=== PATIENT | male | born 1945 | race Caucasian/White ===

== ENCOUNTER 2018-10-22 19:13 | Inpatient (IN) | payer MEDICARE, OTHER ==
[~2018-10-22] VITALS: Ht 162.6 cm; Wt 57.6 kg
[2018-10-22] MEDS ORDERED: DOCUSATE SODIUM 283 MG/5 ML MINI-ENEMA PR PRN (21:45)
[2018-10-22] MEDS ORDERED: INSULIN LISPRO 100 UNITS/ML SQ PRN (22:00)
[2018-10-22] MEDS ORDERED: DEXTROSE 50%-WATER 25 GM/50 ML SYRINGE IVP PRN (22:00)
[2018-10-22 22:35] VITALS: BP 151/75
[2018-10-23 00:51] VITALS: BP 140/67
[2018-10-23] MEDS: ACETAMINOPHEN 325 MG TABLET PO PRN (00:51)
[2018-10-23] MEDS: LORazepam 1 MG TABLET PO PRN (03:12)
[2018-10-23] MEDS: LEVOTHYROXINE SODIUM 25 MCG TABLET PO SCH (06:02)
[2018-10-23 06:35] LABS: GLUCOMETER DEV NAME(LOC) 2WR.1; GLUCOSE,POINT OF CARE 92 MG/DL (70-110)
[2018-10-23 06:40] LABS: BASOPHILS % (AUTO) 0.6 % (0.0-2.0); EOSINOPHILS % (AUTO) 2.7 % (1.0-6.0); HEMATOCRIT 28.5 % (41-53); LYMPHOCYTES # (AUTO) 1.6 K/uL (1.0-4.8); LYMPHOCYTES % (AUTO) 25.8 % (22.0-44.0); MEAN CORPUSCULAR HEMOGLOBIN 31.2 pg (26.0-34.0); MEAN CORPUSCULAR VOLUME 89 fL (80-100); MONOCYTES # (AUTO) 0.6 K/uL (0.1-1.0); MONOCYTES % (AUTO) 10.3 % (2.0-9.0); NEUTROPHILS # (AUTO) 3.8 K/uL (1.8-7.7); NEUTROPHILS % (AUTO) 60.6 % (40.0-70.0); PLATELET COUNT (AUTO) 210 K/uL (150-450); RED CELL DISTRIBUTION WIDTH 15.3 % (11.5-14.5)
[2018-10-23 07:00] VITALS: BP 118/58
[2018-10-23 07:14] LABS: ALBUMIN 1.2 g/dL (3.4-5.0); BILIRUBIN,TOTAL 0.2 mg/dL (0.1-1.0); CALCIUM, TOTAL 7.6 mg/dL (8.8-10.5); CREATININE 1.5 mg/dL (0.60-1.30); POTASSIUM 3.7 mmol/L (3.5-5.1); TOTAL PROTEIN, SERUM 5.7 g/dL (6.4-8.2)
[2018-10-23] MEDS ORDERED: PNEUMOCOCCAL VACCINE POLYVALENT 0.5 ML VIAL [PPSV23] IM ONE (08:00)
[2018-10-23] MEDS: LOSARTAN POTASSIUM 50 MG TABLET PO SCH ×2 (08:53→20:31)
[2018-10-23] MEDS: PANTOPRAZOLE SODIUM 40 MG DR TABLET PO SCH ×2 (08:53→20:31)
[2018-10-23] MEDS: APIXABAN 5 MG TABLET PO SCH ×2 (08:53→20:31)
[2018-10-23] MEDS: SPIRONOLACTONE 25 MG TABLET PO SCH (08:53)
[2018-10-23] MEDS: CHOLECALCIFEROL (VIT D3) 1,000 UNITS TABLET PO SCH (08:53)
[2018-10-23] MEDS: ASPIRIN 81 MG CHEWABLE TABLET PO SCH (08:53)
[2018-10-23] MEDS: CARVEDILOL 3.125 MG TABLET PO SCH ×2 (08:53→17:00)
[2018-10-23] MEDS: ETHACRYNIC ACID 25 MG TABLET PO SCH (08:54)
[2018-10-23] MEDS ORDERED: DOCUSATE SODIUM 100 MG CAPSULE PO SCH (09:00)
[2018-10-23] MEDS: DOCUSATE SODIUM 250 MG CAPSULE PO SCH ×2 (09:00→20:31)
[2018-10-23] MEDS ORDERED: HYDROCODONE/ACETAMINOPHEN 5-325 MG TABLET PO PRN (12:30)
[2018-10-23] MEDS ORDERED: NITROGLYCERIN 2% (1 GM=INCH) PACKET TP PRN (12:30)
[2018-10-23 12:35] LABS: GLUCOMETER DEV NAME(LOC) 2WR.2; GLUCOSE,POINT OF CARE 102 MG/DL (70-110)
[2018-10-23] MEDS: POLYETHYLENE GLYCOL 3350 17 GM PACKET PO SCH (13:56)
[2018-10-23 16:11] VITALS: BP 130/56
[2018-10-23] MEDS ORDERED: ISOSORBIDE MONONITRATE 20 MG TABLET PO SCH (17:00)
[2018-10-23 17:54] LABS: GLUCOMETER DEV NAME(LOC) 2WR.1; GLUCOSE,POINT OF CARE 96 MG/DL (70-110)
[2018-10-23 20:15] VITALS: BP 132/68
[2018-10-23] MEDS: SENNA 187 MG TABLET PO SCH (20:31)
[2018-10-23] MEDS: ROSUVASTATIN CALCIUM 20 MG TABLET PO SCH (20:32)
[2018-10-23] MEDS: MELATONIN 3 MG TABLET PO PRN (20:34)
[2018-10-23] MEDS ORDERED: SENNA 187 MG TABLET PO SCH (21:00)
[2018-10-23 23:09] LABS: GLUCOMETER DEV NAME(LOC) 2WR.2; GLUCOSE,POINT OF CARE 101 MG/DL (70-110)
[2018-10-23 23:56] VITALS: BP 111/57
[2018-10-24] MEDS: LORazepam 1 MG TABLET PO PRN (02:13)
[2018-10-24] MEDS: LEVOTHYROXINE SODIUM 25 MCG TABLET PO SCH (05:55)
[2018-10-24 06:04] LABS: GLUCOMETER DEV NAME(LOC) 2WR.2; GLUCOSE,POINT OF CARE 93 MG/DL (70-110)
[2018-10-24 08:00] VITALS: BP 125/57
[2018-10-24] MEDS: POLYETHYLENE GLYCOL 3350 17 GM PACKET PO SCH (08:06)
[2018-10-24] MEDS: ETHACRYNIC ACID 25 MG TABLET PO SCH (08:06)
[2018-10-24] MEDS: APIXABAN 5 MG TABLET PO SCH ×2 (08:06→20:41)
[2018-10-24] MEDS: PANTOPRAZOLE SODIUM 40 MG DR TABLET PO SCH ×2 (08:07→20:42)
[2018-10-24] MEDS: SPIRONOLACTONE 25 MG TABLET PO SCH (08:07)
[2018-10-24] MEDS: CARVEDILOL 3.125 MG TABLET PO SCH ×2 (08:07→15:57)
[2018-10-24] MEDS: CHOLECALCIFEROL (VIT D3) 1,000 UNITS TABLET PO SCH (08:07)
[2018-10-24] MEDS: DOCUSATE SODIUM 250 MG CAPSULE PO SCH ×2 (08:07→20:37)
[2018-10-24] MEDS: ASPIRIN 81 MG CHEWABLE TABLET PO SCH (08:07)
[2018-10-24] MEDS: LOSARTAN POTASSIUM 50 MG TABLET PO SCH ×2 (08:07→20:43)
[2018-10-24] MEDS: ISOSORBIDE MONONITRATE 30 MG ER TABLET PO SCH (08:24)
[2018-10-24] MEDS ORDERED: MAGNESIUM CITRATE 300 ML ORAL SOLUTION PO ONE (10:45)
[2018-10-24 12:28] LABS: GLUCOMETER DEV NAME(LOC) 2WR.1; GLUCOSE,POINT OF CARE 111 MG/DL (70-110)
[2018-10-24 16:00] VITALS: BP 98/54
[2018-10-24 17:49] LABS: GLUCOMETER DEV NAME(LOC) 2WR.2; GLUCOSE,POINT OF CARE 102 MG/DL (70-110)
[2018-10-24] MEDS: ACETAMINOPHEN 325 MG TABLET PO PRN (18:41)
[2018-10-24] MEDS: SENNA 187 MG TABLET PO SCH (20:37)
[2018-10-24 20:39] VITALS: BP 134/60
[2018-10-24] MEDS: ROSUVASTATIN CALCIUM 20 MG TABLET PO SCH (20:42)
[2018-10-24 21:04] LABS: GLUCOMETER DEV NAME(LOC) 2WR.1; GLUCOSE,POINT OF CARE 96 MG/DL (70-110)
[2018-10-25 00:36] VITALS: BP 109/52
[2018-10-25] MEDS: LORazepam 1 MG TABLET PO PRN (02:55)
[2018-10-25] MEDS: LEVOTHYROXINE SODIUM 25 MCG TABLET PO SCH (06:34)
[2018-10-25 06:39] LABS: GLUCOMETER DEV NAME(LOC) 2WR.1; GLUCOSE,POINT OF CARE 84 MG/DL (70-110)
[2018-10-25 07:24] VITALS: BP 126/70
[2018-10-25] MEDS: CARVEDILOL 3.125 MG TABLET PO SCH ×2 (07:30→17:00)
[2018-10-25] MEDS: ETHACRYNIC ACID 25 MG TABLET PO SCH ×2 (07:56→09:25)
[2018-10-25] MEDS: DOCUSATE SODIUM 250 MG CAPSULE PO SCH ×2 (07:57→20:58)
[2018-10-25] MEDS: LOSARTAN POTASSIUM 50 MG TABLET PO SCH ×2 (07:57→20:59)
[2018-10-25] MEDS: POLYETHYLENE GLYCOL 3350 17 GM PACKET PO SCH (07:58)
[2018-10-25] MEDS: PANTOPRAZOLE SODIUM 40 MG DR TABLET PO SCH ×2 (09:23→20:49)
[2018-10-25] MEDS: ISOSORBIDE MONONITRATE 30 MG ER TABLET PO SCH (09:23)
[2018-10-25] MEDS: SPIRONOLACTONE 25 MG TABLET PO SCH (09:23)
[2018-10-25] MEDS: APIXABAN 5 MG TABLET PO SCH ×2 (09:23→20:48)
[2018-10-25] MEDS: ASPIRIN 81 MG CHEWABLE TABLET PO SCH (09:23)
[2018-10-25] MEDS: CHOLECALCIFEROL (VIT D3) 1,000 UNITS TABLET PO SCH (09:24)
[2018-10-25] MEDS ORDERED: ROSU20 PO (14:51)
[2018-10-25] MEDS ORDERED: CARV3 PO (14:52)
[2018-10-25] MEDS ORDERED: ISOS30TA6 PO (14:53)
[2018-10-25] MEDS ORDERED: APIX5TAB PO (14:54)
[2018-10-25] MEDS ORDERED: PANT40TA25 PO (14:54)
[2018-10-25] MEDS ORDERED: LEVO25TA9 PO (14:55)
[2018-10-25] MEDS ORDERED: ETHA25TA4 PO (14:56)
[2018-10-25] MEDS ORDERED: ASPI-1182 PO (14:57)
[2018-10-25] MEDS ORDERED: SPIR25 PO (14:57)
[2018-10-25] MEDS ORDERED: VITAD1000 PO (14:59)
[2018-10-25] MEDS ORDERED: LOSA25TA2 PO (15:00)
[2018-10-25 17:05] VITALS: BP 112/58
[2018-10-25 17:53] LABS: GLUCOMETER DEV NAME(LOC) 2WR.2; GLUCOSE,POINT OF CARE 102 MG/DL (70-110)
[2018-10-25 20:46] VITALS: BP 104/50
[2018-10-25] MEDS: ROSUVASTATIN CALCIUM 20 MG TABLET PO SCH (20:51)
[2018-10-25] MEDS: SENNA 187 MG TABLET PO SCH (20:58)
[2018-10-25 23:50] VITALS: BP 112/55
[2018-10-25] MEDS: MELATONIN 3 MG TABLET PO PRN (23:51)
[2018-10-25] MEDS: ACETAMINOPHEN 325 MG TABLET PO PRN (23:51)
[2018-10-26] VITALS (8 sets, daily range): BP systolic 86–158; BP diastolic 38–78
[2018-10-26 05:34] LABS: GLUCOMETER DEV NAME(LOC) 2WR.2; GLUCOSE,POINT OF CARE 89 MG/DL (70-110)
[2018-10-26] MEDS: LEVOTHYROXINE SODIUM 25 MCG TABLET PO SCH (05:59)
[2018-10-26] MEDS: CARVEDILOL 3.125 MG TABLET PO SCH ×2 (07:30→16:19)
[2018-10-26] MEDS: LOSARTAN POTASSIUM 50 MG TABLET PO SCH ×2 (07:53→20:21)
[2018-10-26] MEDS: POLYETHYLENE GLYCOL 3350 17 GM PACKET PO SCH (07:55)
[2018-10-26] MEDS: DOCUSATE SODIUM 250 MG CAPSULE PO SCH ×2 (07:56→20:14)
[2018-10-26] MEDS: ISOSORBIDE MONONITRATE 30 MG ER TABLET PO SCH (07:57)
[2018-10-26] MEDS: PANTOPRAZOLE SODIUM 40 MG DR TABLET PO SCH ×2 (07:57→20:15)
[2018-10-26] MEDS: ASPIRIN 81 MG CHEWABLE TABLET PO SCH (07:57)
[2018-10-26] MEDS: CHOLECALCIFEROL (VIT D3) 1,000 UNITS TABLET PO SCH (07:57)
[2018-10-26] MEDS: ESCITALOPRAM OXALATE 10 MG TABLET PO SCH (07:57)
[2018-10-26] MEDS: APIXABAN 5 MG TABLET PO SCH ×2 (07:57→20:15)
[2018-10-26] MEDS: SPIRONOLACTONE 25 MG TABLET PO SCH (07:58)
[2018-10-26] MEDS: ETHACRYNIC ACID 25 MG TABLET PO SCH (07:58)
[2018-10-26] MEDS ORDERED: TEMAZEPAM 15 MG CAPSULE PO PRN ×3 (13:30→20:00)
[2018-10-26] MEDS: ROSUVASTATIN CALCIUM 20 MG TABLET PO SCH (20:17)
[2018-10-26] MEDS: METOPROLOL SUCCINATE 25 MG ER TABLET PO SCH (20:21)
[2018-10-26] MEDS: SENNA 187 MG TABLET PO SCH (20:21)
[2018-10-26] MEDS ORDERED: MELATONIN 5 MG TABLET PO SCH (21:00)
[2018-10-27 00:18] VITALS: BP 119/52
[2018-10-27 05:54] LABS: GLUCOMETER DEV NAME(LOC) 2WR.2; GLUCOSE,POINT OF CARE 84 MG/DL (70-110)
[2018-10-27] MEDS: LEVOTHYROXINE SODIUM 25 MCG TABLET PO SCH (06:35)
[2018-10-27 06:43] LABS: BASOPHILS % (AUTO) 0.3 % (0.0-2.0); EOSINOPHILS % (AUTO) 2.8 % (1.0-6.0); HEMATOCRIT 27.1 % (41-53); HEMOGLOBIN 9.5 g/dL (13.5-17.5); LYMPHOCYTES # (AUTO) 1.6 K/uL (1.0-4.8); LYMPHOCYTES % (AUTO) 20.6 % (22.0-44.0); MEAN CORPUSCULAR HEMOGLOBIN 30.7 pg (26.0-34.0); MEAN CORPUSCULAR HGB CONC 35.1 G/dL (31.0-37.0); MEAN CORPUSCULAR VOLUME 88 fL (80-100); MONOCYTES # (AUTO) 0.7 K/uL (0.1-1.0); MONOCYTES % (AUTO) 8.5 % (2.0-9.0); NEUTROPHILS # (AUTO) 5.2 K/uL (1.8-7.7); NEUTROPHILS % (AUTO) 67.8 % (40.0-70.0); PLATELET COUNT (AUTO) 238 K/uL (150-450); RED CELL DISTRIBUTION WIDTH 14.7 % (11.5-14.5)
[2018-10-27 07:20] VITALS: BP 130/57
[2018-10-27 07:38] LABS: ALBUMIN 1.5 g/dL (3.4-5.0); BILIRUBIN,TOTAL 0.2 mg/dL (0.1-1.0); CALCIUM, TOTAL 7.5 mg/dL (8.8-10.5); CREATININE 1.36 mg/dL (0.60-1.30); MAGNESIUM 2.3 mg/dL (1.80-2.40); POTASSIUM 3.7 mmol/L (3.5-5.1); TOTAL PROTEIN, SERUM 5.5 g/dL (6.4-8.2)
[2018-10-27] MEDS: ESCITALOPRAM OXALATE 10 MG TABLET PO SCH (07:54)
[2018-10-27] MEDS: ASPIRIN 81 MG CHEWABLE TABLET PO SCH (07:54)
[2018-10-27] MEDS: CHOLECALCIFEROL (VIT D3) 1,000 UNITS TABLET PO SCH (07:54)
[2018-10-27] MEDS: APIXABAN 5 MG TABLET PO SCH ×2 (07:54→20:16)
[2018-10-27] MEDS: DOCUSATE SODIUM 250 MG CAPSULE PO SCH ×2 (07:54→20:14)
[2018-10-27] MEDS: ETHACRYNIC ACID 25 MG TABLET PO SCH (07:55)
[2018-10-27] MEDS: ISOSORBIDE MONONITRATE 30 MG ER TABLET PO SCH (07:55)
[2018-10-27] MEDS: PANTOPRAZOLE SODIUM 40 MG DR TABLET PO SCH ×2 (07:55→20:15)
[2018-10-27] MEDS: LOSARTAN POTASSIUM 50 MG TABLET PO SCH ×2 (07:55→20:20)
[2018-10-27] MEDS: POLYETHYLENE GLYCOL 3350 17 GM PACKET PO SCH (07:56)
[2018-10-27 16:00] VITALS: BP 106/58
[2018-10-27 18:39] LABS: GLUCOMETER DEV NAME(LOC) 2WR.1; GLUCOSE,POINT OF CARE 113 MG/DL (70-110)
[2018-10-27] MEDS ORDERED: ONDANSETRON HCL 4 MG TABLET PO PRN (18:45)
[2018-10-27 19:51] VITALS: BP 139/54
[2018-10-27] MEDS: SENNA 187 MG TABLET PO SCH (20:14)
[2018-10-27] MEDS: ROSUVASTATIN CALCIUM 20 MG TABLET PO SCH (20:15)
[2018-10-27] MEDS: METOPROLOL SUCCINATE 25 MG ER TABLET PO SCH (20:20)
[2018-10-27] MEDS: TEMAZEPAM 15 MG CAPSULE PO PRN (21:56)
[2018-10-28] MEDS: LEVOTHYROXINE SODIUM 25 MCG TABLET PO SCH (05:42)
[2018-10-28 05:50] VITALS: BP 138/64
[2018-10-28 06:13] LABS: GLUCOMETER DEV NAME(LOC) 2WR.2; GLUCOSE,POINT OF CARE 80 MG/DL (70-110)
[2018-10-28 06:48] LABS: BASOPHILS % (AUTO) 0.7 % (0.0-2.0); EOSINOPHILS % (AUTO) 2.7 % (1.0-6.0); HEMOGLOBIN 9.5 g/dL (13.5-17.5); LYMPHOCYTES # (AUTO) 1.5 K/uL (1.0-4.8); LYMPHOCYTES % (AUTO) 25.8 % (22.0-44.0); MEAN CORPUSCULAR HEMOGLOBIN 31.2 pg (26.0-34.0); MEAN CORPUSCULAR HGB CONC 35.3 G/dL (31.0-37.0); MEAN CORPUSCULAR VOLUME 88 fL (80-100); MONOCYTES # (AUTO) 0.5 K/uL (0.1-1.0); MONOCYTES % (AUTO) 8.6 % (2.0-9.0); NEUTROPHILS # (AUTO) 3.6 K/uL (1.8-7.7); NEUTROPHILS % (AUTO) 62.2 % (40.0-70.0); PLATELET COUNT (AUTO) 236 K/uL (150-450); RED BLOOD CELL COUNT(AUTO) 3.06 MIL/uL (4.50-5.90); RED CELL DISTRIBUTION WIDTH 14.9 % (11.5-14.5)
[2018-10-28 07:04] LABS: ALBUMIN 1.5 g/dL (3.4-5.0); BILIRUBIN,TOTAL 0.2 mg/dL (0.1-1.0); CALCIUM, TOTAL 7.7 mg/dL (8.8-10.5); CREATININE 1.35 mg/dL (0.60-1.30); POTASSIUM 3.6 mmol/L (3.5-5.1); TOTAL PROTEIN, SERUM 6.1 g/dL (6.4-8.2)
[2018-10-28 07:19] VITALS: BP 127/58
[2018-10-28] MEDS: ESCITALOPRAM OXALATE 10 MG TABLET PO SCH (07:58)
[2018-10-28] MEDS: CHOLECALCIFEROL (VIT D3) 1,000 UNITS TABLET PO SCH (07:58)
[2018-10-28] MEDS: ASPIRIN 81 MG CHEWABLE TABLET PO SCH (07:58)
[2018-10-28] MEDS: DOCUSATE SODIUM 250 MG CAPSULE PO SCH ×2 (07:58→20:18)
[2018-10-28] MEDS: ETHACRYNIC ACID 25 MG TABLET PO SCH (07:58)
[2018-10-28] MEDS: PANTOPRAZOLE SODIUM 40 MG DR TABLET PO SCH ×2 (07:59→20:18)
[2018-10-28] MEDS: ISOSORBIDE MONONITRATE 30 MG ER TABLET PO SCH (07:59)
[2018-10-28] MEDS: APIXABAN 5 MG TABLET PO SCH ×2 (07:59→20:19)
[2018-10-28] MEDS: LOSARTAN POTASSIUM 50 MG TABLET PO SCH ×2 (08:00→20:23)
[2018-10-28] MEDS: POLYETHYLENE GLYCOL 3350 17 GM PACKET PO SCH (08:00)
[2018-10-28 15:30] VITALS: BP 128/58
[2018-10-28 16:49] VITALS: BP 128/58
[2018-10-28 20:12] VITALS: BP 132/60
[2018-10-28] MEDS: SENNA 187 MG TABLET PO SCH (20:18)
[2018-10-28] MEDS: ROSUVASTATIN CALCIUM 20 MG TABLET PO SCH (20:19)
[2018-10-28] MEDS: TEMAZEPAM 15 MG CAPSULE PO PRN (20:22)
[2018-10-28] MEDS: METOPROLOL SUCCINATE 25 MG ER TABLET PO SCH (20:23)
[2018-10-29 02:00] VITALS: BP 131/58
[2018-10-29] MEDS: LEVOTHYROXINE SODIUM 25 MCG TABLET PO SCH (05:37)
[2018-10-29 05:39] LABS: GLUCOMETER DEV NAME(LOC) 2WR.1; GLUCOSE,POINT OF CARE 80 MG/DL (70-110)
[2018-10-29 06:54] LABS: BASOPHILS % (AUTO) 0.7 % (0.0-2.0); EOSINOPHILS % (AUTO) 2.9 % (1.0-6.0); HEMATOCRIT 31.6 % (41-53); HEMOGLOBIN 10.8 g/dL (13.5-17.5); LYMPHOCYTES # (AUTO) 1.8 K/uL (1.0-4.8); LYMPHOCYTES % (AUTO) 24.8 % (22.0-44.0); MEAN CORPUSCULAR HEMOGLOBIN 30.3 pg (26.0-34.0); MEAN CORPUSCULAR HGB CONC 34.3 G/dL (31.0-37.0); MEAN CORPUSCULAR VOLUME 88 fL (80-100); MONOCYTES # (AUTO) 0.5 K/uL (0.1-1.0); MONOCYTES % (AUTO) 6.8 % (2.0-9.0); NEUTROPHILS # (AUTO) 4.8 K/uL (1.8-7.7); NEUTROPHILS % (AUTO) 64.8 % (40.0-70.0); PLATELET COUNT (AUTO) 312 K/uL (150-450); RED BLOOD CELL COUNT(AUTO) 3.58 MIL/uL (4.50-5.90)
[2018-10-29 07:21] LABS: ALBUMIN 1.7 g/dL (3.4-5.0); BILIRUBIN,TOTAL 0.2 mg/dL (0.1-1.0); CREATININE 1.18 mg/dL (0.60-1.30); POTASSIUM 3.8 mmol/L (3.5-5.1); TOTAL PROTEIN, SERUM 6.3 g/dL (6.4-8.2)
[2018-10-29] MEDS: ASPIRIN 81 MG CHEWABLE TABLET PO SCH (07:48)
[2018-10-29] MEDS: DOCUSATE SODIUM 250 MG CAPSULE PO SCH ×2 (07:48→20:13)
[2018-10-29] MEDS: APIXABAN 5 MG TABLET PO SCH ×2 (07:48→20:14)
[2018-10-29] MEDS: CHOLECALCIFEROL (VIT D3) 1,000 UNITS TABLET PO SCH (07:50)
[2018-10-29] MEDS: LOSARTAN POTASSIUM 50 MG TABLET PO SCH ×2 (07:50→20:19)
[2018-10-29] MEDS: PANTOPRAZOLE SODIUM 40 MG DR TABLET PO SCH ×2 (07:50→20:14)
[2018-10-29] MEDS: ISOSORBIDE MONONITRATE 30 MG ER TABLET PO SCH (07:50)
[2018-10-29] MEDS: ESCITALOPRAM OXALATE 10 MG TABLET PO SCH (07:51)
[2018-10-29] MEDS: ETHACRYNIC ACID 25 MG TABLET PO SCH (07:51)
[2018-10-29] MEDS: POLYETHYLENE GLYCOL 3350 17 GM PACKET PO SCH ×3 (07:52→20:14)
[2018-10-29 08:00] VITALS: BP 128/57
[2018-10-29] MEDS ORDERED: LOSA50TA64 PO (13:17)
[2018-10-29] MEDS ORDERED: *NON-FORMULARY MED [ENTER DRUG, DOSE, FREQ IN COMMENTS] CLINICAL ONE (15:00)
[2018-10-29 15:33] VITALS: BP 137/56
[2018-10-29 17:00] VITALS: BP 126/68
[2018-10-29] MEDS ORDERED: [UNRECOGNIZED DRUG - REMARK] TP PRN (17:00)
[2018-10-29 19:59] VITALS: BP 154/64
[2018-10-29] MEDS: ROSUVASTATIN CALCIUM 20 MG TABLET PO SCH (20:13)
[2018-10-29] MEDS: SENNA 187 MG TABLET PO SCH (20:14)
[2018-10-29] MEDS: TEMAZEPAM 15 MG CAPSULE PO PRN (20:15)
[2018-10-29] MEDS: METOPROLOL SUCCINATE 25 MG ER TABLET PO SCH (20:20)
[2018-10-30 04:09] VITALS: BP 140/64
[2018-10-30] MEDS: LEVOTHYROXINE SODIUM 25 MCG TABLET PO SCH (06:19)
[2018-10-30 08:00] VITALS: BP 135/66
[2018-10-30] MEDS: PANTOPRAZOLE SODIUM 40 MG DR TABLET PO SCH ×2 (08:42→20:36)
[2018-10-30] MEDS: CHOLECALCIFEROL (VIT D3) 1,000 UNITS TABLET PO SCH (08:42)
[2018-10-30] MEDS: DOCUSATE SODIUM 250 MG CAPSULE PO SCH ×2 (08:42→20:36)
[2018-10-30] MEDS: ISOSORBIDE MONONITRATE 30 MG ER TABLET PO SCH (08:42)
[2018-10-30] MEDS: ASPIRIN 81 MG CHEWABLE TABLET PO SCH (08:43)
[2018-10-30] MEDS: APIXABAN 5 MG TABLET PO SCH ×2 (08:44→20:35)
[2018-10-30] MEDS: ESCITALOPRAM OXALATE 10 MG TABLET PO SCH (08:45)
[2018-10-30] MEDS: POLYETHYLENE GLYCOL 3350 17 GM PACKET PO SCH ×3 (08:45→20:37)
[2018-10-30] MEDS: LOSARTAN POTASSIUM 50 MG TABLET PO SCH ×2 (09:00→20:31)
[2018-10-30 15:30] VITALS: BP 148/61
[2018-10-30 17:49] LABS: GLUCOMETER DEV NAME(LOC) 2WR.2; GLUCOSE,POINT OF CARE 115 MG/DL (70-110)
[2018-10-30 20:28] VITALS: BP 141/62
[2018-10-30] MEDS: METOPROLOL SUCCINATE 25 MG ER TABLET PO SCH (20:31)
[2018-10-30] MEDS: ROSUVASTATIN CALCIUM 20 MG TABLET PO SCH (20:36)
[2018-10-30] MEDS: SENNA 187 MG TABLET PO SCH (20:37)
[2018-10-30] MEDS: TEMAZEPAM 15 MG CAPSULE PO PRN (20:38)
[2018-10-31 03:30] VITALS: BP 136/57
[2018-10-31] MEDS: LEVOTHYROXINE SODIUM 25 MCG TABLET PO SCH (06:10)
[2018-10-31] MEDS: LOSARTAN POTASSIUM 50 MG TABLET PO SCH ×2 (08:25→20:14)
[2018-10-31 08:26] VITALS: BP 126/56
[2018-10-31] MEDS: POLYETHYLENE GLYCOL 3350 17 GM PACKET PO SCH ×2 (08:50→15:31)
[2018-10-31] MEDS: CHOLECALCIFEROL (VIT D3) 1,000 UNITS TABLET PO SCH (08:50)
[2018-10-31] MEDS: DOCUSATE SODIUM 250 MG CAPSULE PO SCH ×2 (08:51→20:13)
[2018-10-31] MEDS: APIXABAN 5 MG TABLET PO SCH ×2 (08:51→20:11)
[2018-10-31] MEDS: ISOSORBIDE MONONITRATE 30 MG ER TABLET PO SCH (08:51)
[2018-10-31] MEDS: PANTOPRAZOLE SODIUM 40 MG DR TABLET PO SCH ×2 (08:51→20:11)
[2018-10-31] MEDS: ASPIRIN 81 MG CHEWABLE TABLET PO SCH (08:51)
[2018-10-31] MEDS: ESCITALOPRAM OXALATE 10 MG TABLET PO SCH (08:51)
[2018-10-31 15:34] VITALS: BP 136/56
[2018-10-31] MEDS ORDERED: POLYETHYLENE GLYCOL 3350 17 GM PACKET PO PRN (15:45)
[2018-10-31 19:34] VITALS: BP 120/53
[2018-10-31] MEDS: ROSUVASTATIN CALCIUM 20 MG TABLET PO SCH (20:11)
[2018-10-31] MEDS: SENNA 187 MG TABLET PO SCH (20:14)
[2018-10-31] MEDS: METOPROLOL SUCCINATE 25 MG ER TABLET PO SCH (20:14)
[2018-10-31] MEDS: TEMAZEPAM 15 MG CAPSULE PO PRN (21:22)
[2018-11-01 01:12] VITALS: BP 152/73
[2018-11-01] MEDS: LEVOTHYROXINE SODIUM 25 MCG TABLET PO SCH (06:15)
[2018-11-01 07:26] VITALS: BP 132/59
[2018-11-01] MEDS: ESCITALOPRAM OXALATE 10 MG TABLET PO SCH (07:57)
[2018-11-01] MEDS: APIXABAN 5 MG TABLET PO SCH ×2 (07:57→21:40)
[2018-11-01] MEDS: CHOLECALCIFEROL (VIT D3) 1,000 UNITS TABLET PO SCH (07:57)
[2018-11-01] MEDS: ISOSORBIDE MONONITRATE 30 MG ER TABLET PO SCH (07:58)
[2018-11-01] MEDS: ASPIRIN 81 MG CHEWABLE TABLET PO SCH (07:58)
[2018-11-01] MEDS: DOCUSATE SODIUM 250 MG CAPSULE PO SCH ×2 (07:58→21:00)
[2018-11-01] MEDS: LOSARTAN POTASSIUM 50 MG TABLET PO SCH ×2 (08:05→21:00)
[2018-11-01] MEDS: PANTOPRAZOLE SODIUM 40 MG DR TABLET PO SCH ×2 (08:06→21:40)
[2018-11-01] MEDS ORDERED: POLYETHYLENE GLYCOL 3350 17 GM PACKET PO SCH (09:00)
[2018-11-01 16:00] VITALS: BP 127/59
[2018-11-01] MEDS: POLYETHYLENE GLYCOL 3350 17 GM PACKET PO SCH (16:29)
[2018-11-01] MEDS: METOPROLOL SUCCINATE 25 MG ER TABLET PO SCH (21:00)
[2018-11-01] MEDS: SENNA 187 MG TABLET PO SCH (21:00)
[2018-11-01] MEDS: ROSUVASTATIN CALCIUM 20 MG TABLET PO SCH (21:40)
[2018-11-01] MEDS: TEMAZEPAM 15 MG CAPSULE PO PRN (21:44)
[2018-11-01 21:46] VITALS: BP 132/62
[2018-11-01 23:55] VITALS: BP 136/57
[2018-11-02] VITALS: BP 136/57
[2018-11-02] MEDS: LEVOTHYROXINE SODIUM 25 MCG TABLET PO SCH (06:08)
[2018-11-02 06:45] LABS: BASOPHILS % (AUTO) 0.5 % (0.0-2.0); EOSINOPHILS % (AUTO) 2.4 % (1.0-6.0); HEMOGLOBIN 9.4 g/dL (13.5-17.5); LYMPHOCYTES # (AUTO) 1.3 K/uL (1.0-4.8); LYMPHOCYTES % (AUTO) 19.5 % (22.0-44.0); MEAN CORPUSCULAR HEMOGLOBIN 31.2 pg (26.0-34.0); MEAN CORPUSCULAR HGB CONC 34.7 G/dL (31.0-37.0); MEAN CORPUSCULAR VOLUME 90 fL (80-100); MONOCYTES # (AUTO) 0.6 K/uL (0.1-1.0); MONOCYTES % (AUTO) 8.5 % (2.0-9.0); NEUTROPHILS # (AUTO) 4.6 K/uL (1.8-7.7); NEUTROPHILS % (AUTO) 69.1 % (40.0-70.0); PLATELET COUNT (AUTO) 259 K/uL (150-450); RED CELL DISTRIBUTION WIDTH 14.8 % (11.5-14.5)
[2018-11-02] MEDS: ACETAMINOPHEN 325 MG TABLET PO PRN (07:02)
[2018-11-02 07:13] VITALS: BP 131/93
[2018-11-02 07:21] LABS: ALBUMIN 1.5 g/dL (3.4-5.0); BILIRUBIN,TOTAL 0.2 mg/dL (0.1-1.0); CALCIUM, TOTAL 7.5 mg/dL (8.8-10.5); CREATININE 1.18 mg/dL (0.60-1.30); FREE T4 (FREE THYROXINE) 0.88 ng/dL (0.76-1.46); MAGNESIUM 1.9 mg/dL (1.80-2.40); POTASSIUM 3.8 mmol/L (3.5-5.1); TOTAL PROTEIN, SERUM 5.4 g/dL (6.4-8.2)
[2018-11-02] MEDS: ASPIRIN 81 MG CHEWABLE TABLET PO SCH (08:01)
[2018-11-02] MEDS: DOCUSATE SODIUM 250 MG CAPSULE PO SCH ×3 (08:01→20:05)
[2018-11-02] MEDS: ISOSORBIDE MONONITRATE 30 MG ER TABLET PO SCH (08:01)
[2018-11-02] MEDS: APIXABAN 5 MG TABLET PO SCH ×2 (08:01→20:06)
[2018-11-02] MEDS: LOSARTAN POTASSIUM 50 MG TABLET PO SCH ×2 (08:01→20:07)
[2018-11-02] MEDS: ESCITALOPRAM OXALATE 10 MG TABLET PO SCH (08:01)
[2018-11-02] MEDS: PANTOPRAZOLE SODIUM 40 MG DR TABLET PO SCH ×2 (08:01→20:06)
[2018-11-02] MEDS: CHOLECALCIFEROL (VIT D3) 1,000 UNITS TABLET PO SCH (08:01)
[2018-11-02] MEDS ORDERED: SENNA 187 MG TABLET PO PRN (15:00)
[2018-11-02 16:35] VITALS: BP 115/52
[2018-11-02] MEDS: POLYETHYLENE GLYCOL 3350 17 GM PACKET PO SCH (17:00)
[2018-11-02 20:04] VITALS: BP 135/69
[2018-11-02] MEDS: ROSUVASTATIN CALCIUM 20 MG TABLET PO SCH (20:06)
[2018-11-02] MEDS: TEMAZEPAM 15 MG CAPSULE PO PRN (21:22)
[2018-11-03 00:18] VITALS: BP 150/76
[2018-11-03] MEDS: LEVOTHYROXINE SODIUM 25 MCG TABLET PO SCH (05:54)
[2018-11-03 06:48] LABS: EOSINOPHILS % (AUTO) 2.7 % (1.0-6.0); HEMATOCRIT 26.3 % (41-53); HEMOGLOBIN 9.2 g/dL (13.5-17.5); LYMPHOCYTES # (AUTO) 1.4 K/uL (1.0-4.8); LYMPHOCYTES % (AUTO) 22.1 % (22.0-44.0); MEAN CORPUSCULAR HEMOGLOBIN 31.7 pg (26.0-34.0); MEAN CORPUSCULAR VOLUME 91 fL (80-100); MONOCYTES # (AUTO) 0.6 K/uL (0.1-1.0); MONOCYTES % (AUTO) 9.3 % (2.0-9.0); NEUTROPHILS # (AUTO) 4.2 K/uL (1.8-7.7); NEUTROPHILS % (AUTO) 64.9 % (40.0-70.0); PLATELET COUNT (AUTO) 282 K/uL (150-450); RED BLOOD CELL COUNT(AUTO) 2.91 MIL/uL (4.50-5.90); RED CELL DISTRIBUTION WIDTH 14.9 % (11.5-14.5)
[2018-11-03 07:05] LABS: ALBUMIN 1.4 g/dL (3.4-5.0); BILIRUBIN,TOTAL 0.2 mg/dL (0.1-1.0); CALCIUM, TOTAL 7.8 mg/dL (8.8-10.5); CREATININE 1.23 mg/dL (0.60-1.30); MAGNESIUM 1.8 mg/dL (1.80-2.40); POTASSIUM 3.6 mmol/L (3.5-5.1); TOTAL PROTEIN, SERUM 6.1 g/dL (6.4-8.2)
[2018-11-03 07:19] VITALS: BP 150/70
[2018-11-03] MEDS: ISOSORBIDE MONONITRATE 30 MG ER TABLET PO SCH (08:12)
[2018-11-03] MEDS: LOSARTAN POTASSIUM 50 MG TABLET PO SCH ×2 (08:12→20:49)
[2018-11-03] MEDS: APIXABAN 5 MG TABLET PO SCH ×2 (08:12→20:49)
[2018-11-03] MEDS: PANTOPRAZOLE SODIUM 40 MG DR TABLET PO SCH ×2 (08:12→20:49)
[2018-11-03] MEDS: ASPIRIN 81 MG CHEWABLE TABLET PO SCH (08:12)
[2018-11-03] MEDS: ESCITALOPRAM OXALATE 10 MG TABLET PO SCH (08:12)
[2018-11-03] MEDS: CHOLECALCIFEROL (VIT D3) 1,000 UNITS TABLET PO SCH (08:12)
[2018-11-03] MEDS: DOCUSATE SODIUM 250 MG CAPSULE PO SCH ×4 (08:12→20:54)
[2018-11-03 10:15] VITALS: BP 102/51
[2018-11-03 16:00] VITALS: BP 138/50
[2018-11-03 20:46] VITALS: BP 127/55
[2018-11-03] MEDS: ROSUVASTATIN CALCIUM 20 MG TABLET PO SCH (20:49)
[2018-11-03] MEDS: TEMAZEPAM 15 MG CAPSULE PO PRN (22:04)
[2018-11-04 02:43] VITALS: BP 142/59
[2018-11-04] MEDS: ACETAMINOPHEN 325 MG TABLET PO PRN (03:22)
[2018-11-04] MEDS: LEVOTHYROXINE SODIUM 25 MCG TABLET PO SCH (06:17)
[2018-11-04 07:30] VITALS: BP 125/54
[2018-11-04] MEDS: ESCITALOPRAM OXALATE 10 MG TABLET PO SCH (08:53)
[2018-11-04] MEDS: PANTOPRAZOLE SODIUM 40 MG DR TABLET PO SCH ×2 (08:53→20:29)
[2018-11-04] MEDS: LOSARTAN POTASSIUM 50 MG TABLET PO SCH ×2 (08:53→20:29)
[2018-11-04] MEDS: CHOLECALCIFEROL (VIT D3) 1,000 UNITS TABLET PO SCH (08:53)
[2018-11-04] MEDS: ISOSORBIDE MONONITRATE 30 MG ER TABLET PO SCH (08:53)
[2018-11-04] MEDS: APIXABAN 5 MG TABLET PO SCH ×2 (08:53→20:29)
[2018-11-04] MEDS: ASPIRIN 81 MG CHEWABLE TABLET PO SCH (08:53)
[2018-11-04] MEDS: DOCUSATE SODIUM 250 MG CAPSULE PO SCH ×3 (09:00→20:35)
[2018-11-04 15:00] VITALS: BP 138/54
[2018-11-04 16:00] VITALS: BP 138/54
[2018-11-04] MEDS: ROSUVASTATIN CALCIUM 20 MG TABLET PO SCH (20:29)
[2018-11-04 20:30] VITALS: BP 143/56
[2018-11-04] MEDS: TEMAZEPAM 15 MG CAPSULE PO PRN (21:59)
[2018-11-05 02:00] VITALS: BP 150/67
[2018-11-05] MEDS: LEVOTHYROXINE SODIUM 25 MCG TABLET PO SCH (06:13)
[2018-11-05 07:30] VITALS: BP 145/62
[2018-11-05] MEDS: ASPIRIN 81 MG CHEWABLE TABLET PO SCH (07:57)
[2018-11-05] MEDS: APIXABAN 5 MG TABLET PO SCH ×2 (07:57→20:28)
[2018-11-05] MEDS: PANTOPRAZOLE SODIUM 40 MG DR TABLET PO SCH ×2 (07:57→20:28)
[2018-11-05] MEDS: LOSARTAN POTASSIUM 50 MG TABLET PO SCH ×2 (07:57→20:27)
[2018-11-05] MEDS: DOCUSATE SODIUM 250 MG CAPSULE PO SCH ×3 (07:57→20:28)
[2018-11-05] MEDS: CHOLECALCIFEROL (VIT D3) 1,000 UNITS TABLET PO SCH (07:57)
[2018-11-05] MEDS: ESCITALOPRAM OXALATE 10 MG TABLET PO SCH (07:57)
[2018-11-05] MEDS: ISOSORBIDE MONONITRATE 30 MG ER TABLET PO SCH (07:57)
[2018-11-05 16:06] VITALS: BP 104/37
[2018-11-05 20:22] VITALS: BP 137/59
[2018-11-05] MEDS: TEMAZEPAM 15 MG CAPSULE PO PRN (20:28)
[2018-11-05] MEDS: ROSUVASTATIN CALCIUM 20 MG TABLET PO SCH (20:28)
[2018-11-06 04:05] VITALS: BP 154/69
[2018-11-06] MEDS: LEVOTHYROXINE SODIUM 25 MCG TABLET PO SCH (06:34)
[2018-11-06 07:21] VITALS: BP 138/57
[2018-11-06] MEDS: ISOSORBIDE MONONITRATE 30 MG ER TABLET PO SCH (08:37)
[2018-11-06] MEDS: CHOLECALCIFEROL (VIT D3) 1,000 UNITS TABLET PO SCH (08:37)
[2018-11-06] MEDS: ESCITALOPRAM OXALATE 10 MG TABLET PO SCH (08:37)
[2018-11-06] MEDS: LOSARTAN POTASSIUM 50 MG TABLET PO SCH ×2 (08:37→20:33)
[2018-11-06] MEDS: DOCUSATE SODIUM 250 MG CAPSULE PO SCH ×3 (08:38→20:33)
[2018-11-06] MEDS: APIXABAN 5 MG TABLET PO SCH ×2 (08:38→20:33)
[2018-11-06] MEDS: PANTOPRAZOLE SODIUM 40 MG DR TABLET PO SCH ×2 (08:38→20:33)
[2018-11-06] MEDS: ASPIRIN 81 MG CHEWABLE TABLET PO SCH (08:38)
[2018-11-06 15:36] VITALS: BP 164/72
[2018-11-06 20:31] VITALS: BP 146/66
[2018-11-06] MEDS: ROSUVASTATIN CALCIUM 20 MG TABLET PO SCH (20:33)
[2018-11-06] MEDS: TEMAZEPAM 15 MG CAPSULE PO PRN (22:15)
[2018-11-06 23:45] VITALS: BP 144/60
[2018-11-07] VITALS: BP 144/60
[2018-11-07] MEDS: LEVOTHYROXINE SODIUM 25 MCG TABLET PO SCH (06:08)
[2018-11-07 08:00] VITALS: BP 129/64
[2018-11-07] MEDS: DOCUSATE SODIUM 250 MG CAPSULE PO SCH ×2 (08:48→20:20)
[2018-11-07] MEDS: APIXABAN 5 MG TABLET PO SCH ×2 (08:49→20:20)
[2018-11-07] MEDS: CHOLECALCIFEROL (VIT D3) 1,000 UNITS TABLET PO SCH (08:49)
[2018-11-07] MEDS: PANTOPRAZOLE SODIUM 40 MG DR TABLET PO SCH ×2 (08:49→20:20)
[2018-11-07] MEDS: LOSARTAN POTASSIUM 50 MG TABLET PO SCH ×2 (08:49→20:20)
[2018-11-07] MEDS: ASPIRIN 81 MG CHEWABLE TABLET PO SCH (08:49)
[2018-11-07] MEDS: ESCITALOPRAM OXALATE 10 MG TABLET PO SCH (08:54)
[2018-11-07] MEDS: ISOSORBIDE MONONITRATE 30 MG ER TABLET PO SCH (08:54)
[2018-11-07 16:01] VITALS: BP 112/55
[2018-11-07 17:10] VITALS: BP 148/68
[2018-11-07 20:17] VITALS: BP 154/75
[2018-11-07] MEDS: ROSUVASTATIN CALCIUM 20 MG TABLET PO SCH (20:20)
[2018-11-07] MEDS: TEMAZEPAM 15 MG CAPSULE PO PRN (22:06)
[2018-11-08 00:16] VITALS: BP 140/62
[2018-11-08] MEDS: LEVOTHYROXINE SODIUM 25 MCG TABLET PO SCH (06:26)
[2018-11-08 07:31] VITALS: BP 146/65
[2018-11-08] MEDS: DOCUSATE SODIUM 250 MG CAPSULE PO SCH ×2 (08:22→20:24)
[2018-11-08] MEDS: PANTOPRAZOLE SODIUM 40 MG DR TABLET PO SCH ×2 (08:22→20:24)
[2018-11-08] MEDS: ISOSORBIDE MONONITRATE 30 MG ER TABLET PO SCH (08:23)
[2018-11-08] MEDS: LOSARTAN POTASSIUM 50 MG TABLET PO SCH ×2 (08:23→20:24)
[2018-11-08] MEDS: ESCITALOPRAM OXALATE 10 MG TABLET PO SCH (08:23)
[2018-11-08] MEDS: ASPIRIN 81 MG CHEWABLE TABLET PO SCH (08:23)
[2018-11-08] MEDS: CHOLECALCIFEROL (VIT D3) 1,000 UNITS TABLET PO SCH (08:23)
[2018-11-08] MEDS: APIXABAN 5 MG TABLET PO SCH ×2 (08:23→20:24)
[2018-11-08 16:11] VITALS: BP 134/58
[2018-11-08 20:22] VITALS: BP 147/69
[2018-11-08] MEDS: ROSUVASTATIN CALCIUM 20 MG TABLET PO SCH (20:24)
[2018-11-08] MEDS: TEMAZEPAM 15 MG CAPSULE PO PRN (22:03)
[2018-11-09 06:00] VITALS: BP 148/72
[2018-11-09] MEDS: LEVOTHYROXINE SODIUM 25 MCG TABLET PO SCH (06:15)
[2018-11-09 07:50] VITALS: BP 130/59
[2018-11-09] MEDS ORDERED: CARISOPRODOL 350 MG TABLET PO PRN (08:30)
[2018-11-09] MEDS: APIXABAN 5 MG TABLET PO SCH ×2 (08:36→21:04)
[2018-11-09] MEDS: ASPIRIN 81 MG CHEWABLE TABLET PO SCH (08:37)
[2018-11-09] MEDS: PANTOPRAZOLE SODIUM 40 MG DR TABLET PO SCH ×2 (08:37→21:04)
[2018-11-09] MEDS: ESCITALOPRAM OXALATE 10 MG TABLET PO SCH (08:37)
[2018-11-09] MEDS: LOSARTAN POTASSIUM 50 MG TABLET PO SCH ×2 (08:37→21:05)
[2018-11-09] MEDS: CHOLECALCIFEROL (VIT D3) 1,000 UNITS TABLET PO SCH (08:38)
[2018-11-09] MEDS: DOCUSATE SODIUM 250 MG CAPSULE PO SCH ×2 (08:46→21:07)
[2018-11-09] MEDS: ISOSORBIDE MONONITRATE 30 MG ER TABLET PO SCH (09:07)
[2018-11-09 19:02] VITALS: BP 129/58
[2018-11-09] MEDS: METOPROLOL SUCCINATE 25 MG ER TABLET PO SCH (21:00)
[2018-11-09] MEDS: ROSUVASTATIN CALCIUM 20 MG TABLET PO SCH (21:04)
[2018-11-09] MEDS: TEMAZEPAM 15 MG CAPSULE PO PRN (21:08)
[2018-11-09 21:38] VITALS: BP 138/69
[2018-11-10 03:59] VITALS: BP 139/58
[2018-11-10 06:37] LABS: BASOPHILS % (AUTO) 0.8 % (0.0-2.0); EOSINOPHILS % (AUTO) 2.4 % (1.0-6.0); HEMATOCRIT 26.2 % (41-53); HEMOGLOBIN 9.2 g/dL (13.5-17.5); LYMPHOCYTES # (AUTO) 1.5 K/uL (1.0-4.8); MEAN CORPUSCULAR HEMOGLOBIN 31.7 pg (26.0-34.0); MEAN CORPUSCULAR HGB CONC 35.2 G/dL (31.0-37.0); MEAN CORPUSCULAR VOLUME 90 fL (80-100); MONOCYTES # (AUTO) 0.6 K/uL (0.1-1.0); MONOCYTES % (AUTO) 10.3 % (2.0-9.0); NEUTROPHILS # (AUTO) 3.6 K/uL (1.8-7.7); NEUTROPHILS % (AUTO) 61.5 % (40.0-70.0); PLATELET COUNT (AUTO) 240 K/uL (150-450); RED BLOOD CELL COUNT(AUTO) 2.91 MIL/uL (4.50-5.90); RED CELL DISTRIBUTION WIDTH 14.6 % (11.5-14.5)
[2018-11-10] MEDS: LEVOTHYROXINE SODIUM 25 MCG TABLET PO SCH (06:44)
[2018-11-10] MEDS: ASPIRIN 81 MG CHEWABLE TABLET PO SCH (07:59)
[2018-11-10] MEDS: DOCUSATE SODIUM 250 MG CAPSULE PO SCH ×2 (07:59→21:23)
[2018-11-10] MEDS: ISOSORBIDE MONONITRATE 30 MG ER TABLET PO SCH (08:00)
[2018-11-10] MEDS: APIXABAN 5 MG TABLET PO SCH ×2 (08:00→21:23)
[2018-11-10] MEDS: LOSARTAN POTASSIUM 50 MG TABLET PO SCH ×2 (08:00→21:23)
[2018-11-10] MEDS: ESCITALOPRAM OXALATE 10 MG TABLET PO SCH (08:00)
[2018-11-10] MEDS: PANTOPRAZOLE SODIUM 40 MG DR TABLET PO SCH ×2 (08:01→21:24)
[2018-11-10] MEDS: CHOLECALCIFEROL (VIT D3) 1,000 UNITS TABLET PO SCH (08:01)
[2018-11-10 08:11] VITALS: BP 149/66
[2018-11-10 09:24] VITALS: BP 95/45
[2018-11-10 10:25] VITALS: BP 102/47
[2018-11-10 15:25] VITALS: BP 104/51
[2018-11-10] MEDS ORDERED: DOCU250C91 PO (16:24)
[2018-11-10] MEDS ORDERED: METO25XL PO (16:29)
[2018-11-10] MEDS ORDERED: CARI350 PO (16:30)
[2018-11-10] MEDS ORDERED: ESCI10TA PO (16:31)
[2018-11-10] MEDS: ROSUVASTATIN CALCIUM 20 MG TABLET PO SCH (21:24)
[2018-11-10 21:25] VITALS: BP 140/61
[2018-11-10] MEDS: METOPROLOL SUCCINATE 25 MG ER TABLET PO SCH (21:25)
[2018-11-10] MEDS: TEMAZEPAM 15 MG CAPSULE PO PRN (21:59)
[2018-11-11 00:37] VITALS: BP 119/59
[2018-11-11] MEDS: LEVOTHYROXINE SODIUM 25 MCG TABLET PO SCH (06:00)
[2018-11-11 07:16] VITALS: BP 131/52
[2018-11-11] MEDS: DOCUSATE SODIUM 250 MG CAPSULE PO SCH ×2 (08:28→20:52)
[2018-11-11] MEDS: ISOSORBIDE MONONITRATE 30 MG ER TABLET PO SCH (08:28)
[2018-11-11] MEDS: PANTOPRAZOLE SODIUM 40 MG DR TABLET PO SCH ×2 (08:28→20:52)
[2018-11-11] MEDS: ASPIRIN 81 MG CHEWABLE TABLET PO SCH (08:28)
[2018-11-11] MEDS: ESCITALOPRAM OXALATE 10 MG TABLET PO SCH (08:28)
[2018-11-11] MEDS: LOSARTAN POTASSIUM 50 MG TABLET PO SCH ×2 (08:28→21:38)
[2018-11-11] MEDS: APIXABAN 5 MG TABLET PO SCH ×2 (08:29→20:53)
[2018-11-11] MEDS: CHOLECALCIFEROL (VIT D3) 1,000 UNITS TABLET PO SCH (08:29)
[2018-11-11 15:16] VITALS: BP 139/57
[2018-11-11 20:28] VITALS: BP 129/55
[2018-11-11] MEDS: ROSUVASTATIN CALCIUM 20 MG TABLET PO SCH (20:52)
[2018-11-11] MEDS: METOPROLOL SUCCINATE 25 MG ER TABLET PO SCH (20:53)
[2018-11-11] MEDS: TEMAZEPAM 15 MG CAPSULE PO PRN (21:37)
[2018-11-11 23:59] VITALS: BP 142/66
[2018-11-12] MEDS: LEVOTHYROXINE SODIUM 25 MCG TABLET PO SCH (06:05)
[2018-11-12 07:30] VITALS: BP 138/60
[2018-11-12] MEDS: PANTOPRAZOLE SODIUM 40 MG DR TABLET PO SCH (08:51)
[2018-11-12] MEDS: LOSARTAN POTASSIUM 50 MG TABLET PO SCH (08:51)
[2018-11-12] MEDS: DOCUSATE SODIUM 250 MG CAPSULE PO SCH (08:51)
[2018-11-12] MEDS: ISOSORBIDE MONONITRATE 30 MG ER TABLET PO SCH (08:51)
[2018-11-12] MEDS: CHOLECALCIFEROL (VIT D3) 1,000 UNITS TABLET PO SCH (08:51)
[2018-11-12] MEDS: ASPIRIN 81 MG CHEWABLE TABLET PO SCH (08:52)
[2018-11-12] MEDS: APIXABAN 5 MG TABLET PO SCH (08:52)
[2018-11-12] MEDS: ESCITALOPRAM OXALATE 10 MG TABLET PO SCH (08:52)
== END 2018-11-12 10:55 | disposition home or self-care (01) | DRG 65 ==
LOC: 2WR 21:30 → EDBD 21:30
PROVIDERS: ADMIT Physical Medicine & Rehabilitation; ATTEND Physical Medicine & Rehabilitation
PROC: 0HBRXZZ Excision of Toe Nail, External Approach (ICD-10-PCS; principal; 2018-10-31)
PROC: 0HBRXZZ Excision of Toe Nail, External Approach (ICD-10-PCS; 2018-10-31)
PROC: 0HBRXZZ Excision of Toe Nail, External Approach (ICD-10-PCS; 2018-10-31)
PROC: 0HBRXZZ Excision of Toe Nail, External Approach (ICD-10-PCS; 2018-10-31)
PROC: 0HBRXZZ Excision of Toe Nail, External Approach (ICD-10-PCS; 2018-10-31)
PROC: 0HBRXZZ Excision of Toe Nail, External Approach (ICD-10-PCS; 2018-10-31)
PROC: 0HBRXZZ Excision of Toe Nail, External Approach (ICD-10-PCS; 2018-10-31)
PROC: 0HBRXZZ Excision of Toe Nail, External Approach (ICD-10-PCS; 2018-10-31)
PROC: 0HBRXZZ Excision of Toe Nail, External Approach (ICD-10-PCS; 2018-10-31)
PROC: 0HBRXZZ Excision of Toe Nail, External Approach (ICD-10-PCS; 2018-10-31)
DX: I63.9 Cerebral infarction, unspecified (principal); E87.1 Hypo-osmolality and hyponatremia; G81.91 Hemiplegia, unspecified affecting right dominant side; I13.0 Hypertensive heart and chronic kidney disease with heart failure and stage 1 through stage 4 chronic kidney disease, or unspecified chronic kidney disease; D63.1 Anemia in chronic kidney disease; E03.9 Hypothyroidism, unspecified; E10.22 Type 1 diabetes mellitus with diabetic chronic kidney disease; E78.5 Hyperlipidemia, unspecified; F41.9 Anxiety disorder, unspecified; G47.00 Insomnia, unspecified; I25.119 Atherosclerotic heart disease of native coronary artery with unspecified angina pectoris; K21.9 Gastro-esophageal reflux disease without esophagitis; K59.00 Constipation, unspecified; N18.9 Chronic kidney disease, unspecified; E10.51 Type 1 diabetes mellitus with diabetic peripheral angiopathy without gangrene; F32.9 Major depressive disorder, single episode, unspecified; G31.84 Mild cognitive impairment of uncertain or unknown etiology; I25.5 Ischemic cardiomyopathy; I48.2 Chronic atrial fibrillation; I50.9 Heart failure, unspecified; L60.0 Ingrowing nail; L60.3 Nail dystrophy; M47.812 Spondylosis without myelopathy or radiculopathy, cervical region; F43.23 Adjustment disorder with mixed anxiety and depressed mood; I25.2 Old myocardial infarction; Z79.01 Long term (current) use of anticoagulants; Z79.4 Long term (current) use of insulin; Z79.82 Long term (current) use of aspirin; Z86.718 Personal history of other venous thrombosis and embolism; Z95.1 Presence of aortocoronary bypass graft; Z79.899 Other long term (current) drug therapy; Z87.891 Personal history of nicotine dependence
CPT/HCPCS: 74018; 83036; 83735; 84439; 84443; 87081; 92507; 92508; 92523; 93005; 93970; 97110; 97112; 97116; 97150; 97163; 97167; 97530; 97535; 99366; Q0162